=== PATIENT | female | born 1980 | race Two or more races ===

== ENCOUNTER 2019-04-28 17:01 | Inpatient (IN) | payer MEDICAID ==
[~2019-04-28] VITALS: Ht 160 cm; Wt 78.9 kg
[2019-04-28] MEDS ORDERED: PNV1TABL50 MT (17:40)
[2019-04-28] MEDS ORDERED: DEXT 5%/LACTATED RINGERS 1,000 ML IV SCH (19:07)
[2019-04-28] MEDS ORDERED: RHO(D) IMMUNE GLOBULIN 300 MCG/SYR IM NR (19:15)
[2019-04-28] MEDS ORDERED: METHYLERGONOVINE MALEATE 0.2 MG/ML IM PRN (19:15)
[2019-04-28] MEDS ORDERED: NALOXONE HCL 0.4 MG/ML 1ML VIAL IM PRN (19:15)
[2019-04-28] MEDS: LACTATED RINGERS 1,000 ML IV SCH (19:35)
[2019-04-28] MEDS ORDERED: CITRIC ACID/SODIUM CITRATE SOLN 30ML UDC PO NR (19:45)
[2019-04-28] MEDS ORDERED: CEFAZOLIN SODIUM 1000MG/VIAL ONE (20:40)
[2019-04-28] MEDS ORDERED: SODIUM CHLORIDE 0.9% 10ML VIAL ONE (20:40)
[2019-04-28] MEDS ORDERED: METOCLOPRAMIDE HCL 10MG/2ML VIAL ONE (20:42)
[2019-04-28] MEDS ORDERED: OXYTOCIN 10 UNITS/ML 1ML ONE (20:42)
[2019-04-28] MEDS ORDERED: ONDANSETRON HCL 4MG/2ML INJ ONE (20:42)
[2019-04-28] MEDS ORDERED: DEXAMETHASONE 4MG/ML 1ML VIAL ONE (20:42)
[2019-04-28] MEDS ORDERED: KETOROLAC 60MG/2ML VIAL IM ONE (20:42)
[2019-04-28] MEDS ORDERED: CEFAZOLIN 2,000 MG in DEXT 5% WATER 100 ML IV NR (21:00)
[2019-04-28 21:06] LABS: BASOPHILS % 0.3 % (0.0-2.0); EOSINOPHILS % 1.3 % (0.0-5.0); HEMATOCRIT. 37.3 % (36.0-48.0); MEAN CORPUSCULAR HEMOGLOBIN 33.3 pg (28.0-32.0); MEAN CORPUSCULAR VOLUME 95.1 fL (81.0-99.0); MEAN PLATELET VOLUME 11.4 fl (7.4-10.4); NEUTROPHILS % 66.4 % (40.0-76.0); PLATELET 122 x1000/uL (130-400); RED BLOOD CELL COUNT 3.92 mill/uL (4.2-5.4)
[2019-04-28 21:07] LABS: CLARITY URINE CLEAR (CLEAR); COLOR URINE YELLOW (YELLOW); KETONES URINE NEGATIVE (NEGATIVE); LEUKOCYTE ESTERASE URINE 1+ (NEGATIVE); NITRITE URINE NEGATIVE (NEGATIVE); OCCULT BLOOD URINE NEGATIVE (NEGATIVE); PROTEIN URINE NEGATIVE (NEGATIVE); SPECIFIC GRAVITY URINE 1.022 (1.005-1.030)
[2019-04-28 21:07] LABS: PARTIAL THROMBOPLASTIN TIME 28.8 sec (23.4-31.0); PROTHROMBIN TIME 9.8 sec (9.6-11.0)
[2019-04-28 21:25] LABS: *AMPHETAMINES SCREEN URINE NEGATIVE (NEGATIVE); *BARBITURATES SCREEN URINE NEGATIVE (NEGATIVE); *BENZODIAZEPINES SCREEN URINE NEGATIVE (NEGATIVE); *COCAINE SCREEN URINE NEGATIVE (NEGATIVE); METHADONE URINE SCREEN NEGATIVE (NEGATIVE); OPIATES URINE SCREEN NEGATIVE (NEGATIVE)
[2019-04-28 21:26] LABS: PHENCYCLIDINE URINE SCREEN NEGATIVE (NEGATIVE)
[2019-04-28 21:27] LABS: CANNABINOID URINE SCREEN NEGATIVE (NEGATIVE)
[2019-04-28 21:40] LABS: HEPATITIS B SURFACE ANTIGEN NEGATIVE
[2019-04-28] MEDS ORDERED: MEPERIDINE HCL/PF 50MG/ML CPJ IV ONE (22:00)
[2019-04-28] MEDS ORDERED: DIPHENHYDRAMINE 50MG/ML VIAL IM PRN (22:45)
[2019-04-28] MEDS ORDERED: BISACODYL 10MG SUPP PR PRN (22:45)
[2019-04-28] MEDS ORDERED: DEXT 5%/LR + PITOCIN 20UNITS/L 1,000 ML IV ONE (22:45)
[2019-04-28] MEDS ORDERED: IBUPROFEN 400MG TABLET PO PRN (22:45)
[2019-04-28] MEDS ORDERED: ONDANSETRON HCL 4MG/2ML INJ IV PRN (22:45)
[2019-04-28] MEDS ORDERED: HYDROMORPHONE HCL/PF 2MG/ML CPJ IM PRN (22:45)
[2019-04-28] MEDS ORDERED: HYDROMORPHONE HCL/PF 2MG/ML CPJ IV PRN (22:45)
[2019-04-28] MEDS ORDERED: RHO(D) IMMUNE GLOBULIN 300 MCG/SYR IM PRN (22:45)
[2019-04-28] MEDS: DEXT 5%/LR + PITOCIN 20UNITS/L 1,000 ML IV SCH (23:31)
[2019-04-29 01:30] VITALS: BP 111/70
[2019-04-29] MEDS: LACTATED RINGERS 1,000 ML IV SCH ×2 (03:07→17:03)
[2019-04-29 04:00] VITALS: BP 110/70
[2019-04-29 07:16] LABS: BASOPHILS % 0.1 % (0.0-2.0); EOSINOPHILS % 0.1 % (0.0-5.0); HEMATOCRIT. 33.6 % (36.0-48.0); HEMOGLOBIN. 11.6 g/dL (12.0-16.0); LYMPHOCYTES % 15.4 % (20.0-50.0); MEAN CORPUSCULAR HEMOGLOBIN 33.2 pg (28.0-32.0); MEAN CORPUSCULAR VOLUME 95.9 fL (81.0-99.0); MEAN PLATELET VOLUME 10.3 fl (7.4-10.4); MONOCYTES % 4.1 % (2.0-8.0); NEUTROPHILS % 80.3 % (40.0-76.0); PLATELET 114 x1000/uL (130-400); RED CELL DISTRIBUTION WIDTH 13.8 % (11.6-14.6)
[2019-04-29 08:00] VITALS: BP 113/71
[2019-04-29] MEDS: DEXT 5%/LR + PITOCIN 20UNITS/L 1,000 ML IV SCH (08:00)
[2019-04-29] MEDS: KETOROLAC 30MG/ML VIAL IV PRN ×2 (09:59→16:18)
[2019-04-29] MEDS: MAGNESIUM/ALUMINUM HYDROXIDE/SIMETHICONE 30ML UDC PO PRN ×2 (15:12→21:37)
[2019-04-29 15:45] VITALS: BP 115/73
[2019-04-29 20:55] VITALS: BP 112/81
[2019-04-30 04:00] VITALS: BP 120/72
[2019-04-30 08:00] VITALS: BP 126/85
[2019-04-30] MEDS: MAGNESIUM/ALUMINUM HYDROXIDE/SIMETHICONE 30ML UDC PO PRN ×2 (09:47→16:16)
[2019-04-30] MEDS: IBUPROFEN 800MG TABLET PO PRN (16:15)
[2019-04-30] MEDS ORDERED: GUAIFENESIN 200MG/10ML SUGAR FREE UDC PO PRN (16:15)
[2019-04-30] MEDS ORDERED: GUAIFENESIN/CODEINE 200-20MG/10ML UDC PO PRN (18:00)
[2019-04-30] MEDS ORDERED: BISACODYL 5MG TABLET PO PRN (19:45)
[2019-04-30 20:00] VITALS: BP 124/80
[2019-04-30 23:58] VITALS: BP 126/84
[2019-05-01 01:22] VITALS: BP 111/73
[2019-05-01 05:00] VITALS: BP 116/81
[2019-05-01 07:15] VITALS: BP 120/82
[2019-05-01] MEDS ORDERED: IBUP-2028 PO (07:15)
[2019-05-01] MEDS: MAGNESIUM/ALUMINUM HYDROXIDE/SIMETHICONE 30ML UDC PO PRN (08:14)
[2019-05-01] MEDS: IBUPROFEN 800MG TABLET PO PRN (08:30)
== END 2019-05-01 12:15 | disposition home or self-care (01) | DRG 540 ==
LOC: 8 EST LDRP 17:01 → OBSVTOIN 17:01 → 8EST 04-29
PROVIDERS: ADMIT Obstetrics & Gynecology; ATTEND Obstetrics & Gynecology
PROC: 10D00Z1 Extraction of Products of Conception, Low, Open Approach (ICD-10-PCS; principal; 2019-04-28)
DX: O34.211 Maternal care for low transverse scar from previous cesarean delivery (principal); O36.63X0 Maternal care for excessive fetal growth, third trimester, not applicable or unspecified; O77.0 Labor and delivery complicated by meconium in amniotic fluid; O69.81X0 Labor and delivery complicated by cord around neck, without compression, not applicable or unspecified; Z37.0 Single live birth; Z3A.38 38 weeks gestation of pregnancy; Z82.49 Family history of ischemic heart disease and other diseases of the circulatory system; Z83.3 Family history of diabetes mellitus
CPT/HCPCS: 36415; 80305; 81003; 86592; 86703; 86762; 86850; 86900; 87340; 88307; 99281; J0690; J1100; J1885; J2175; J2405; J2590; J2765; J7060; J7120; A4315

== ENCOUNTER 2024-05-17 15:33 | Emergency (ER) | payer MEDICAID ==
[~2024-05-17] VITALS: Ht 162.6 cm; Wt 68.0 kg
[~2024-05-17 15:33] MED LIST: IBUP-2028 PO
[2024-05-17 15:43] VITALS: O2SAT 98
[2024-05-17 16:31] LABS: CLARITY URINE CLOUDY (CLEAR); COLOR URINE YELLOW (YELLOW); GLUCOSE URINE NEGATIVE (NEGATIVE); KETONES URINE NEGATIVE (NEGATIVE); LEUKOCYTE ESTERASE URINE 2+ (NEGATIVE); NITRITE URINE NEGATIVE (NEGATIVE); OCCULT BLOOD URINE NEGATIVE (NEGATIVE); PROTEIN URINE TRACE (NEGATIVE); SPECIFIC GRAVITY URINE 1.026 (1.005-1.030)
[2024-05-17] MEDS ORDERED: AMOX1TAB16 MT (16:47)
[2024-05-17] MEDS ORDERED: PYR200 MT (16:47)
[2024-05-17 18:10] LABS: BACTERIA URINE 2+; RBC URINE 0-2 /hpf (0-2); SQUAMOUS EPITHELIAL CELL URINE 1+ /lpf (RARE/1+); WBC URINE 50-100 /hpf (0-2)
[2024-05-17] MEDS ORDERED: CEFP100S5 MT (18:18)
[2024-05-17 18:25] VITALS: BP 132/81; PULSE 78; RESP 12; TEMP 36.61404; O2SAT 100
== END 2024-05-17 18:32 | disposition home or self-care (01) ==
LOC: ER 15:33
DX: N39.0 Urinary tract infection, site not specified (principal); Z79.899 Other long term (current) drug therapy
CPT/HCPCS: 81003; 81025; 87077; 87186; 99283